=== PATIENT | male | born 1970 | race African-American/Black ===

== ENCOUNTER 2021-06-02 17:42 | Emergency (ER) | payer MEDICAID ==
[~2021-06-02] VITALS: Ht 180.3 cm; Wt 87.0 kg
[2021-06-02] MEDS ORDERED: HYDROCODONE/ACETAMINOPHEN 5/325MG TABLET PO ONE (18:15)
[2021-06-02 18:23] VITALS: BP 126/72
[2021-06-02] MEDS ORDERED: TOPUD PO (18:52)
== END 2021-06-02 19:29 | disposition home or self-care (01) ==
LOC: ER 17:42
DX: S90.31XA Contusion of right foot, initial encounter (principal); X58.XXXA Exposure to other specified factors, initial encounter; Y93.89 Activity, other specified; Y92.89 Other specified places as the place of occurrence of the external cause
CPT/HCPCS: 73630; 99283; Z7610